=== PATIENT | male | born 1960 | race Caucasian/White ===

== ENCOUNTER 2017-02-22 15:01 | Outpatient (CLI) | payer OTHER ==
[~2017-02-22] VITALS: Ht 170.2 cm; Wt 77.7 kg
[2017-02-22 15:09] VITALS: BP 128/69; PULSE 64; RESP 16; Ht 170.2 cm; Wt 77.7 kg
--- NOTE | 2017-02-22 15:26 | PN ---
Date/Time of Note Date/Time of Note DATE: 02/22/17 TIME: 15:20 Outpatient Progress Note Chief Complaint Dog bite/alcohol abuse/ HPI Dog bite/patient has dog bite in the left hand, patient had surgery, patient was recently hospitalized, no fever chills, no pain, Alcohol abuse/patient has history of alcohol abuse, no recent drink, no unsteadiness of the gait, no headache dizziness lightness, no nausea vomiting, no abdominal pain, Review of Systems Const: No Fever, no chills, no Wt. loss, no Fatigue, normal appetite, no diaphoresis. Eyes: No pain, no discharge, no redness, no visual change, no foreign body. ENT: No pain, no bleeding, no congestion, no sore throat, no dysphagia, no discharge or rhinitis. Lymph: No adenopathy, no tender nodes, no lymphedema. Resp: No SOB, no cough, no sputum, no wheezing, no chest pain. CV: No chest pain, no palpitaions, no SULLIVAN, no PND, no edema. GI: Normal appetite, no pain, no nausea, no vomiting, no diarrhea, no blood, no constipation. : No frequency, no urgency, no dysuria, no hematuria, no flank pain, no discharge, no bleeding. Musc: No bone/joint pain, no back pain, no neck pain, no knee pain, no restricted ROM. Skin: No rash, no skin lesions, no erythema, no laceration, no bruising, no pruritu patient has a dog bite on left hand, covered after the surgery,. Neuro: No GARCIA, no dizziness, no syncope, no seizure, no focal-weakness. Endo: No polyuria, no polydypsia, no dry-skin, no temp-intolerance. Psych: No hallucinations, no depression, no anxiety, no suicidal ideation. Ext: No edema, no pain, no ulcer, no weakness. Physical Exam General Appearance: A [56 year-old male who appears well-developed, well- nourished, in no acute distress. HEENT: Head normocephalic, atraumatic. Pupils equal, round, reactive to light and accommodate. Sclerae are no jaundice. Nasal turbinates pink without erythema or nasal discharge. Mucous membranes pink and moist without lesions. Oropharynx clear without any exudate or discharge. NECK: Supple. Trachea midline, No thyromegaly, No cervical lymphadenopathy, No mass, No carotid bruits, No JVD, Carotid pulses 2+ bilaterally. PULMONARY: Clear to auscultaion bilaterally, No retractions, Chest expansion symmetric bilaterally, no rales, no ronchi, no dulness on percussion. CARDIAC: Normal SI and S2, Regular rate and rythm, no murmur, gallop, or rub. GASTROINTESTINAL: Abdomen is soft, non-tender, Non Rigid, No distention, Positive bowel sounds x4 quadrants, Liver normal. SKIN: Warm, dry, no rash, no bruise, no echmosis. Patient had dog bite on left hand, patient had surgery, patient had covered with a cast, EXTREMITIES: Bilateral lower extremities normal, no edema, no phlabitus, pulse palpable, no contracture. MUSCULOSKELETAL: Spine Normal, Non-tender, Normal range of motion, No swelling, no deformity, no clubbing, or cyanosis, the patient has no edema to bilateral lower extremities, dorsalis pedis pulses palpable bilaterally. NEUROLOGIC: The patient is awake, alert, oriented, responding to yes/no questions appropriately, moving all extremities, cranial nerve intact, normal strenght, normal power, normal coordination, normal gait. PMH Allergy done, Past medical history/no major medical problem, is except history of for alcohol drinking, no smoking, no drugs, Social Hx No smoking, drinking socially more than socially, Family Hx Noncontributory Assessment/Plan Impression Dog bite/alcohol abuse Plan Patient has antibiotic, patient was treated at [place], patient had recovered , no fevers, no bleeding or discharge, no foul-smelling, Patient encouraged to follow with orthopedic surgery and also primary care physician, Patient does have antibiotic, and patient does not need any pain medication, If patient has any fever to let us know, or any drainage to let us know, TEJINDER BUSTAMANTE MD Feb 22, 2017 15:26
[2017-02-22] MEDS ORDERED: CEPH500C PO (15:46)
[2017-02-22] MEDS ORDERED: DOCU-159 PO (15:46)
[2017-02-22] MEDS ORDERED: LACTINEX PO (15:46)
[2017-02-22] MEDS ORDERED: SENN-53 PO (15:46)
== END 2017-02-22 16:57 | disposition home or self-care (01) ==
LOC: DCC 15:01
PROVIDERS: ATTEND Internal Medicine
DX: S61.452D Open bite of left hand, subsequent encounter (principal); F10.10 Alcohol abuse, uncomplicated

== ENCOUNTER 2017-03-08 15:30 | Outpatient (CLI) | payer OTHER ==
[~2017-03-08] VITALS: Ht 171.4 cm; Wt 79.5 kg
[2017-03-08 15:28] VITALS: BP 125/71; PULSE 76; RESP 18; Ht 171.4 cm; Wt 79.5 kg
[~2017-03-08 15:30] MED LIST: CEPH500C PO; DOCU-159 PO; LACTINEX PO; SENN-53 PO
--- NOTE | 2017-03-10 15:15 | PN ---
Date/Time of Note Date/Time of Note DATE: 03/10/17 TIME: 14:45 Outpatient Progress Note Chief Complaint Dog bite rightand/left hand swelling//alcohol abuse HPI Dogbite/Patient hasdogbite,left hand, no fever or chill, patient finished antibiotic, patient had discomfort, patient was seen by plastic, and dressing was changed, Left hand swelling/patient has slight left hand swelling, patient has no tingling or numbness no pain, patient was getting leading the hand, All call abuse/patient has history of all call abuse, no all call drinking recently, Review of Systems Const: [No Fever, no chills, no Wt. loss, no Fatigue, normal appetite, no diaphoresis.] Eyes: [No pain, no discharge, no redness, no visual change, no foreign body.] ENT: [No pain, no bleeding, no congestion, no sore throat, no dysphagia, no discharge or rhinitis.] Lymph: [No adenopathy, no tender nodes, no lymphedema.] Resp: [No SOB, no cough, no sputum, no wheezing, no chest pain.] CV: [No chest pain, no palpitaions, no SULLIVAN, no PND, no edema.] GI: [Normal appetite, no pain, no nausea, no vomiting, no diarrhea, no blood, no constipation.] : [No frequency, no urgency, no dysuria, no hematuria, no flank pain, no discharge, no bleeding.] Musc: [No bone/joint pain, no back pain, no neck pain, no knee pain, no restricted ROM.] Skin: [No rash, no skin lesions, no erythema, no laceration, no bruising, no pruritus.] Neuro: [No GARCIA, no dizziness, no syncope, no seizure, no focal-weakness.] Endo: [No polyuria, no polydypsia, no dry-skin, no temp-intolerance.] Psych: [No hallucinations, no depression, no anxiety, no suicidal ideation.] Ext: [No edema, no pain, no ulcer, no weakness.left hand swelling,] Physical Exam Vital Signs Date Time Temp Pulse Resp B/P Pulse Ox O2 Delivery O2 Flow Rate FiO2 03/08/17 15:28 98.4 76 18 125/71 94 Room Air General Appearance: [id number] male[who appears well-developed, well-nourished , in no acute distress.] HEENT: [Head normocephalic, atraumatic. Pupils equal, round, reactive to light and accommodate. Sclerae are no jaundice. Nasal turbinates pink without erythema or nasal discharge. Mucous membranes pink and moist without lesions. Oropharynx clear without any exudate or discharge.] NECK: [Supple. Trachea midline, No thyromegaly, No cervical lymphadenopathy, No mass, No carotid bruits, No JVD, Carotid pulses 2+ bilaterally.] PULMONARY: [Clear to auscultaion bilaterally, No retractions, Chest expansion symmetric bilaterally, no rales, no ronchi, no dulness on percussion.] CARDIAC: [Normal SI and S2, Regular rate and rythm, no murmur, gallop, or rub.] GASTROINTESTINAL: [Abdomen is soft, non-tender, Non Rigid, No distention, Positive bowel sounds x4 quadrants, Liver normal.] SKIN: [Warm, dry, no rash, no bruise, no echmosis.] EXTREMITIES: [Bilateral lower extremities normal, no edema, no phlabitus, pulse palpable, no contracture.] MUSCULOSKELETAL: [Spine Normal, Non-tender, Normal range of motion, No swelling , no deformity, no clubbing, or cyanosis, the patient has no edema to bilateral lower extremities, dorsalis pedis pulses palpable bilaterally.] NEUROLOGIC: [The patient is awake, alert, oriented, responding to yes/no questions appropriately, moving all extremities, cranial nerve intact, normal strenght, normal power, normal coordination, normal gait.] Allergies Coded Allergies: No Known Drug Allergies (Verified Allergy, Unknown, 02/22/17) PMH No change Social Hx No change Family Hx No change Assessment/Plan Impression Drug bites/left and swelling/history ofalcohol abuse Plan Patient had seen plastic today, patient blood dressing change, patient has no fever or chill, no pain, Patient has swelling of her left hand, patient was dangling the hand, discussed with the patient to keep the hands elevated all time, Patient to follow with the primary care physician, Patient education done about alcohol, Medications Home Meds Reported Medications Sennosides* (Senna Lax*) 8.6 Mg Tablet, 1 TAB PO BID, TAB 02/22/17 Lactobacillus Acidophilus* (Lactinex*) 1 Tab Chew, 1 TAB PO BID, TAB 02/22/17 Docusate Sodium* (Docusate Sodium*) 100 Mg Capsule, 100 MG PO DAILY, #30 CAP 02/22/17 Discontinued Reported Medications Cephalexin* (Cephalexin*) 500 Mg Capsule, 500 MG PO Q6 for infections, #28 CAP 02/22/17 TEJINDER BUSTAMANTE MD Mar 10, 2017 15:15
== END 2017-03-08 16:27 | disposition home or self-care (01) ==
LOC: DCC 15:30
PROVIDERS: ATTEND Internal Medicine
DX: S61.452D Open bite of left hand, subsequent encounter (principal); W54.0XXD Bitten by dog, subsequent encounter; R22.32 Localized swelling, mass and lump, left upper limb; F10.21 Alcohol dependence, in remission
CPT/HCPCS: G0463